=== PATIENT | male | born 1995 | race Caucasian/White ===

== ENCOUNTER 2017-10-03 21:47 | Emergency (ER) | payer SELFPAY, OTHER ==
[2017-10-03] MEDS: HYDROcodone/APAP 5/325MG 1 TAB TABLET PO (22:03)
== END 2017-10-03 23:12 | disposition home or self-care (01) ==
LOC: ER 21:47
DX: S90.31XA Contusion of right foot, initial encounter (principal); Z96.0 Presence of urogenital implants; W20.8XXA Other cause of strike by thrown, projected or falling object, initial encounter; Y93.89 Activity, other specified; Y92.89 Other specified places as the place of occurrence of the external cause; Y99.8 Other external cause status
CPT/HCPCS: 73630; 99284

== ENCOUNTER → 2018-04-21 | Outpatient (CLI) | payer OTHER ==
[2017-10-03 21:52] VITALS: BP 130/79
--- NOTE | 2018-04-21 09:20 | KCIC ---
EXAM: Abdomen sonogram. HISTORY: Pain. TECHNIQUE: Sonographic imaging of the abdomen was performed. COMPARISON: CT dated 12/17/2014. FINDINGS: The liver is normal in size. No focal hepatic lesion is seen. The common bile duct is normal in caliber. There are small nonmobile stones or polyps along the gallbladder wall, the largest of which measures 5 mm. There is no bowel wall thickening or pericholecystic fluid. The kidneys are normal in size. There is a suspected 1.5 cm right renal cyst, not well seen due to body habitus. There is no hydronephrosis. The pancreas, aorta and inferior vena cava are partially obscured due to bowel gas. The spleen is upper normal in size. IMPRESSION: 1. Suspected nonmobile gallstones or gallbladder polyps, the largest of which measures 5 mm. 2. Suspected 1.5 cm right renal cyst. 3. Slightly limited exam due to body habitus and bowel gas. The midline structures and inferior right kidney are not well seen. Electronically signed by: Natalie Ghosh MD (04/21/2018 9:16 AM) [id number]
== END | disposition home or self-care (01) ==
LOC: KCIC US 07:51
PROVIDERS: ATTEND Family Medicine
DX: R10.84 Generalized abdominal pain (principal); R11.2 Nausea with vomiting, unspecified; Z96.0 Presence of urogenital implants
CPT/HCPCS: 76700